=== PATIENT | female | born 1955 | race Caucasian/White ===

== ENCOUNTER 2018-06-28 09:33 | Emergency (ER) | payer BC, OTHER ==
[2018-06-28] MEDS: ONDANSETRON 4 MG INJ IV ×3 (11:55→13:53)
[2018-06-28 12:21] LABS: ADD MAN DIFF? NO
[2018-06-28 12:23] LABS: BASOPHILS % 0.4 % (0.0-2.0); EOSINOPHILS # 0.2 10^3/ul (0.0-0.5); EOSINOPHILS % 3.3 % (0.0-7.0); HEMATOCRIT 37.7 % (37.0-47.0); HEMOGLOBIN 12.4 g/dl (12.0-16.0); LYMPHOCYTES # 1.2 10^3/ul (0.8-2.9); LYMPHOCYTES % 24.6 % (15.0-51.0); MEAN CORPUSCULAR HEMOGLOBIN 28.5 pg (29.0-33.0); MEAN CORPUSCULAR HGB CONC 32.9 g/dl (32.0-37.0); MEAN CORPUSCULAR VOLUME 86.7 fl (82.0-101.0); MONOCYTE # 0.6 10^3/ul (0.3-0.9); NEUTROPHIL # 2.9 10^3/ul (1.6-7.5); NEUTROPHILS % 59.5 % (39.0-77.0); PLATELET COUNT 210 10^3/UL (140-415); RED BLOOD COUNT 4.35 10^6/ul (4.20-5.40); RED CELL DISTRIBUTION WIDTH 13.1 % (11.5-14.5)
[2018-06-28 12:23] LABS: WHITE BLOOD COUNT 4.8 10^3/ul (4.8-10.8)
[2018-06-28] MEDS: morphine 4 MG/ML VIAL IV ×2 (12:39→14:35)
[2018-06-28] MEDS: SOD CHLORIDE 0.9% 1,000 ML IV (12:43)
[2018-06-28 12:45] LABS: INR 1.01; PROTIME 13.4 Sec (11.9-14.9)
[2018-06-28 12:46] LABS: ALANINE AMINOTRANSFERASE 29 IU/L (13-69); ALBUMIN/GLOBULIN RATIO 1.25; ALKALINE PHOSPHATASE 70 IU/L (42-121); AMYLASE 96 U/L (11-123); ANION GAP 9 (5-13); ASPARTATE AMINO TRANSFERASE 27 IU/L (15-46); BILIRUBIN,INDIRECT 0.6 mg/dl (0-1.1); BILIRUBIN,TOTAL 0.6 mg/dl (0.2-1.3); BLOOD UREA NITROGEN 9 mg/dl (7-20); CALCIUM 9.6 mg/dl (8.4-10.2); CARBON DIOXIDE 28 mmol/L (21-31); CHLORIDE 106 mmol/L (97-110); CREATININE 0.61 mg/dl (0.44-1.00); Estimated GFR > 60 mL/min (>60); GLUCOSE 89 mg/dl (70-220); LIPASE 87 U/L (23-300); PARTIAL THROMBOPLASTIN TIME 41.9 Sec (23.0-35.0); POTASSIUM 4.3 mmol/L (3.5-5.1); SODIUM 143 mmol/L (135-144); TOTAL PROTEIN 7.2 g/dl (6.1-8.1)
[2018-06-28 12:57] LABS: TROPONIN-I < 0.012 ng/ml (0.000-0.120)
[2018-06-28] MEDS: HYDROmorphONE 1 MG/ML SYG IV (13:52)
[2018-06-28] MEDS: KETOROLAC 30 MG INJ IV (13:53)
[2018-06-28] MEDS: FAMOTIDINE 20 MG INJ IV (14:35)
== END 2018-06-28 15:15 | disposition home or self-care (01) ==
LOC: E/R 09:33
DX: K80.20 Calculus of gallbladder without cholecystitis without obstruction (principal); I10 Essential (primary) hypertension; J45.909 Unspecified asthma, uncomplicated; I25.10 Atherosclerotic heart disease of native coronary artery without angina pectoris
CPT/HCPCS: 76705; 80053; 82150; 83690; 84484; 85025; 85610; 85730; 93005; 96374; 96375; 96376; 99285-25

== ENCOUNTER 2018-11-25 23:38 | Observation (INO) | payer BC ==
[2018-11-26 00:01] LABS: ADD MAN DIFF? NO
[2018-11-26 00:06] LABS: BASOPHILS % 0.6 % (0.0-2.0); EOSINOPHILS # 0.2 10^3/ul (0.0-0.5); EOSINOPHILS % 4.4 % (0.0-7.0); HEMATOCRIT 35.4 % (37.0-47.0); HEMOGLOBIN 11.7 g/dl (12.0-16.0); LYMPHOCYTES # 1.8 10^3/ul (0.8-2.9); LYMPHOCYTES % 36.5 % (15.0-51.0); MEAN CORPUSCULAR HEMOGLOBIN 28.7 pg (29.0-33.0); MEAN CORPUSCULAR HGB CONC 33.1 g/dl (32.0-37.0); MONOCYTE # 0.5 10^3/ul (0.3-0.9); MONOCYTES % 9.9 % (0.0-11.0); NEUTROPHIL # 2.4 10^3/ul (1.6-7.5); NEUTROPHILS % 48.4 % (39.0-77.0); PLATELET COUNT 194 10^3/UL (140-415); RED BLOOD COUNT 4.07 10^6/ul (4.20-5.40); RED CELL DISTRIBUTION WIDTH 13.4 % (11.5-14.5)
[2018-11-26 00:24] LABS: ALANINE AMINOTRANSFERASE 17 IU/L (13-69); ALBUMIN 3.8 g/dl (3.3-4.9); ALBUMIN/GLOBULIN RATIO 1.08; ALKALINE PHOSPHATASE 67 IU/L (42-121); ANION GAP 5 (5-13); ASPARTATE AMINO TRANSFERASE 26 IU/L (15-46); BILIRUBIN,INDIRECT 0.3 mg/dl (0-1.1); BILIRUBIN,TOTAL 0.3 mg/dl (0.2-1.3); BLOOD UREA NITROGEN 16 mg/dl (7-20); CALCIUM 9.1 mg/dl (8.4-10.2); CARBON DIOXIDE 28 mmol/L (21-31); CHLORIDE 107 mmol/L (97-110); CREATININE 0.78 mg/dl (0.44-1.00); Estimated GFR > 60 mL/min (>60); GLUCOSE 110 mg/dl (70-220); POTASSIUM 3.2 mmol/L (3.5-5.1); SODIUM 140 mmol/L (135-144); TOTAL PROTEIN 7.3 g/dl (6.1-8.1)
[2018-11-26 00:26] LABS: INR 0.98; PROTIME 13.1 Sec (11.9-14.9)
[2018-11-26 00:27] LABS: PARTIAL THROMBOPLASTIN TIME 36.2 Sec (23.0-35.0)
[2018-11-26 00:35] LABS: B-TYPE NATRIURETIC PEPTIDE 107 PG/ML (0-125); TROPONIN-I < 0.012 ng/ml (0.000-0.120)
[2018-11-26] MEDS: ACETAMINOPHEN 325 MG TAB PO ×2 (01:13→22:08)
[2018-11-26] MEDS: SOD CHLORIDE 0.9% 1,000 ML IV ×3 (01:14→23:49)
[2018-11-26] MEDS: METOPROLOL 5 MG INJ IV (02:51)
[2018-11-26] MEDS ORDERED: ACETAMINOPHEN 325 MG TAB PO (03:30)
[2018-11-26] MEDS ORDERED: ONDANSETRON 4 MG INJ IV ×2 (03:30→05:30)
[2018-11-26] MEDS ORDERED: morphine 2 MG INJ IV (05:30)
[2018-11-26] MEDS ORDERED: ALBUTEROL HFA 8 GM INHALER INH (05:30)
[2018-11-26] MEDS: POTASSIUM CHLORIDE (SR) 20 MEQ TAB PO (05:49)
[2018-11-26 06:33] LABS: ADD MAN DIFF? NO
[2018-11-26 06:42] LABS: BASOPHILS % 0.4 % (0.0-2.0); EOSINOPHILS # 0.2 10^3/ul (0.0-0.5); EOSINOPHILS % 4.6 % (0.0-7.0); HEMATOCRIT 34.9 % (37.0-47.0); HEMOGLOBIN 11.3 g/dl (12.0-16.0); LYMPHOCYTES # 1.8 10^3/ul (0.8-2.9); LYMPHOCYTES % 39.9 % (15.0-51.0); MEAN CORPUSCULAR HEMOGLOBIN 28.8 pg (29.0-33.0); MEAN CORPUSCULAR HGB CONC 32.4 g/dl (32.0-37.0); MEAN CORPUSCULAR VOLUME 88.8 fl (82.0-101.0); MEAN PLATELET VOLUME 11.4 fl (7.4-10.4); MONOCYTE # 0.6 10^3/ul (0.3-0.9); MONOCYTES % 12.3 % (0.0-11.0); NEUTROPHIL # 1.9 10^3/ul (1.6-7.5); NEUTROPHILS % 42.6 % (39.0-77.0); PLATELET COUNT 182 10^3/UL (140-415); RED BLOOD COUNT 3.93 10^6/ul (4.20-5.40); RED CELL DISTRIBUTION WIDTH 13.5 % (11.5-14.5)
[2018-11-26 06:42] LABS: WHITE BLOOD COUNT 4.6 10^3/ul (4.8-10.8)
[2018-11-26 07:01] LABS: ANION GAP 6 (5-13); BLOOD UREA NITROGEN 14 mg/dl (7-20); CALCIUM 8.8 mg/dl (8.4-10.2); CARBON DIOXIDE 27 mmol/L (21-31); CHLORIDE 111 mmol/L (97-110); CREATININE 0.72 mg/dl (0.44-1.00); Estimated GFR > 60 mL/min (>60); GLUCOSE 104 mg/dl (70-220); SODIUM 144 mmol/L (135-144)
[2018-11-26 07:11] LABS: CK INDEX 2.9; CK-MB 1.41 ng/ml (0.0-2.4); CREATINE KINASE 49 IU/L (23-200); TROPONIN-I < 0.012 ng/ml (0.000-0.120)
[2018-11-26] MEDS: MULTIVITAMINS THERAPEUTIC TAB PO (09:20)
[2018-11-26] MEDS: LISINOPRIL 20 MG TAB PO (09:21)
[2018-11-26 12:07] LABS: CREATINE KINASE 46 IU/L (23-200)
[2018-11-26 12:19] LABS: CK INDEX 3.1; CK-MB 1.41 ng/ml (0.0-2.4); TROPONIN-I < 0.012 ng/ml (0.000-0.120)
[2018-11-27] MEDS: MULTIVITAMINS THERAPEUTIC TAB PO (08:09)
[2018-11-27] MEDS: LISINOPRIL 20 MG TAB PO (08:09)
[2018-11-27] MEDS: SOD CHLORIDE 0.9% 1,000 ML IV (10:16)
[2018-11-27] MEDS: ACETAMINOPHEN 325 MG TAB PO (11:41)
== END 2018-11-27 16:06 | disposition home or self-care (01) ==
LOC: E/R 23:38 → 6WM 11-26 04:10
DX: R07.9 Chest pain, unspecified (principal); I48.91 Unspecified atrial fibrillation; E86.0 Dehydration
CPT/HCPCS: 36415; 71045; 80048; 80053; 82550; 82553; 83880; 84484; 85025; 85610; 85730; 93005; 96374; 97161; 99285-25; G0378